=== PATIENT | male | born 1960 | race Caucasian/White ===

== ENCOUNTER 2019-07-23 09:43 | Day surgery (SDC) | payer OTHER, BC ==
[2019-07-23] MEDS ORDERED: Bupivacaine 0.5% 10 ML SDV INJECT ONE (10:05)
[2019-07-23] MEDS ORDERED: ceFAZolin 2 GM in Premix Bag 1 BAG IV ONE (10:30)
--- NOTE | 2019-07-23 10:43 | EDM.PDOC ---
<Nikita Whitfield Meliza - Last Filed: 07/23/19 11:44> ED HPI GENERAL MEDICAL PROBLEM - General Chief Complaint: Upper Extremity Injury/Pain Stated Complaint: RT MIDDLE FINGER INJURY Time Seen by Provider: 07/23/19 09:50 Source of Information: Reports: Patient, Other (Co-worker) History Limitations: Reports: No Limitations - History of Present Illness INITIAL COMMENTS - FREE TEXT/NARRATIVE: 58 y/o male pt presenting today after an injury at work. 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 He reports significant pain to this digit and states that he believes that his fingernail and a piece of the bone was taken with it. He denies any weakness of the proximal portion of his right middle finger and states he can feel sensation beyond just the pain. He denies injury to his other fingers. His co-worker/boss and him both reported the incident occurring around 9:20 a.m. this morning (07/22) and his co-worker brought him in immediately from his workplace ([employer] in [place], [place]). His co-worker reports that he then grabbed the amputated portion of his right middle finger still in the glove and put it in one bag and then into another bag of ice. Pt also reports he got his last tetanus vaccine somewhere between 6-10 years ago, but it probably needs to be updated. Right Finger-Middle Pain Score (Numeric/FACES): 2 - Related Data Allergies Allergy/AdvReac Type Severity Reaction Status Date / Time milk Allergy Cannot Verified 07/21/15 15:33 Remember Penicillins Allergy Hives Verified 07/23/19 09:54 potato Allergy Cannot Verified 07/21/15 15:33 Remember Sulfa (Sulfonamide Allergy Cannot Verified 07/21/15 15:33 Antibiotics) Remember tomato Allergy Cannot Verified 07/21/15 15:33 Remember wheat Allergy Cannot Verified 07/21/15 15:33 Remember Home Meds: Home Meds . [No Known Home Meds] 07/21/15 [History] Past Medical History HEENT History: Reports: Allergic Rhinitis, Impaired Vision Other HEENT History: wears glasses Cardiovascular History: Reports: None Respiratory History: Reports: Asthma Genitourinary History: Reports: None Musculoskeletal History: Reports: None Neurological History: Reports: None Psychiatric History: Reports: None Endocrine/Metabolic History: Reports: None Hematologic History: Reports: None Immunologic History: Reports: None Oncologic (Cancer) History: Reports: None Dermatologic History: Reports: None - Infectious Disease History Infectious Disease History: Reports: None - Past Surgical History GI Surgical History: Reports: Colonoscopy Social & Family History - Tobacco Use Smoking Status *Q: Never Smoker - Caffeine Use Caffeine Use: Reports: Coffee, Tea - Recreational Drug Use Recreational Drug Use: No Review of Systems - Review of Systems Review Of Systems: See Below Constitutional: Reports: No Symptoms Musculoskeletal: Reports: Hand Pain (Right 3rd digit pain from injury ) Skin: Reports: Wound (right 3rd digit amputated across the bone at the distal phalanx, including entire fingernail. ), Change in Hair/Nails (Nail was amputated as well during 3rd right digit injury ) Neurological: Reports: No Symptoms ED EXAM, GENERAL - Physical Exam Exam: See Below Exam Limited By: No Limitations General Appearance: Alert, No Apparent Distress Extremities: Other (Right 3rd digit finger pain from injury ) Neurological: Alert, Oriented, No Motor/Sensory Deficits (No sensory deficits to the portion of right middle finger that is still intact ) Psychiatric: Normal Affect, Normal Mood Skin Exam: Warm, Wound/Incision (amputation by work [place] of the right 3rd middle finger at the distal phalange ) ED TRAUMA EXTREMITY PROCEDURES - Laceration/Wound Repair Right Upper Distal Digit - 3rd (Middle) Appearance: Heavily Contaminated, Other (Amputation through the bone of the distal phalanx of the right 3rd finger ) Distal NVT: Neuro & Vascular Intact, No Tendon Injury Anesthetic Type: Digital Local Anesthesia - Bupivicaine (Marcaine): 0.5% Plain Local Anesthetic Volume: Other (8cc) Skin Prep: Saline Exploration/Debridement/Repair: Wound Explored, Explored to Base, No Foreign Material Found, Other (bone exposure evident ) Course - Vital Signs Last Recorded V/S: Last Vital Signs Temp 37.0 C 07/23/19 12:57 Pulse 71 07/23/19 12:57 Resp 16 07/23/19 12:57 BP 143/99 H 07/23/19 12:57 Pulse Ox 100 07/23/19 12:57 - Orders/Labs/Meds Meds: Medications Discontinued Medications Generic Name Dose Route Start Last Admin Trade Name Yury PRN Reason Stop Dose Admin Bupivacaine HCl 10 ml 07/23/19 10:05 07/23/19 10:10 Sensorcaine-Mpf 0.5% INJECT 07/23/19 10:06 10 ml ONETIME ONE Administration Bupivacaine HCl Confirm 07/23/19 11:47 07/23/19 12:29 Sensorcaine-Mpf 0.25% Administered 07/23/19 11:48 3.5 ml Dose Administration 30 ml .ROUTE .STK-MED ONE Diphtheria/Tetanus/Acell Pertussis 0.5 ml 07/23/19 10:47 07/23/19 10:57 Adacel IM 07/23/19 10:48 0.5 ml .ONCE ONE Administration Cefazolin Sodium/Dextrose 2 gm 50 mls @ 100 mls/hr 07/23/19 10:30 07/23/19 10 :51 / Premix IV 07/23/19 10:59 100 mls/hr ONETIME ONE Administration Lidocaine HCl Confirm 07/23/19 11:47 07/23/19 12:29 Xylocaine-Mpf 1% Administered 07/23/19 11:48 3.5 ml Dose Administration 30 ml .ROUTE .STK-MED ONE Departure - Departure Disposition: DC/Tfer to [facility] Clinical Impression: Traumatic amputation of fingertip Qualifiers: Encounter type: initial encounter Qualified Code(s): S68.119A - Complete traumatic metacarpophalangeal amputation of unspecified finger, initial encounter - Discharge Information Sepsis Event Note - Evaluation Sepsis Screening Result: No Definite Risk - Focused Exam Date Exam was Performed: 07/23/19 Time Exam was Performed: 11:44 <Adi Banerjee - Last Filed: 07/25/19 06:55> ED HPI GENERAL MEDICAL PROBLEM - History of Present Illness Onset: Today Onset Date: 07/23/19 Onset Time: 09:20 Duration: Minutes: Location: Reports: Upper Extremity, Right (Partial amputation distal aspect right third finger.) Quality: Reports: Ache, Throbbing Severity: Moderate Improves with: Reports: None Worsens with: Reports: Other, Movement Context: Reports: Trauma (Crush type injury. 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) (None.) Social & Family History - Living Situation & Occupation Living situation: Reports: Occupation: Employed Review of Systems - Review of Systems Eyes: Reports: Glasses Ears: Reports: No Symptoms Nose: Reports: No Symptoms Mouth/Throat: Reports: No Symptoms Respiratory: Reports: No Symptoms GI/Abdominal: Reports: No Symptoms Genitourinary: Reports: Other (Area x1.) ED EXAM, GENERAL - Physical Exam General Appearance: Other (Signs show temperature 36.8 with a pulse of 73 and sinus respiratory 16 BP is elevated at 182 /109.) Neck: Normal Inspection, Supple, Non-Tender, Full Range of Motion. No: Carotid Bruit, Lymphadenopathy (L), Lymphadenopathy (R) Respiratory/Chest: No Respiratory Distress, Lungs Clear, Normal Breath Sounds, No Accessory Muscle Use, Chest Non-Tender Cardiovascular: Normal Peripheral Pulses, Regular Rate, Rhythm, No Edema, No Gallop, No Murmur, No Rub Peripheral Pulses: 2+: Posterior Tibial (L), Posterior Tibial (R), Dorsalis Pedis (L), Dorsalis Pedis (R) GI/Abdominal: Normal Bowel Sounds, Soft, Non-Tender, No Organomegaly, No Abnormal Bruit, No Mass, Pelvis Stable EKG INTERPRETATION EKG Date: 07/23/19 Time: 11:41 Rhythm: NSR Rate (Beats/Min): 61 [place]: Normal P-Wave: Present QRS: Other (Your Q waves leads III and aVF consider old inferior wall myocardial infarction) ST-T: Normal QT: Normal EKG Interpretation Comments: Abnormal ECG Course - Radiology Interpretation Free Text/Narrative:: 58-year-old male presents to the ED with a crush type injury to the distal aspect of his right third finger. 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 States that his gloved finger became entrapped in the pressor component and resulted in a partial amputation of the distal aspect of his right third finger. Of note the patient is right-hand dominant. On inspection he has lost all of his fingernail and part of the pulp space of the distal right third finger. Plan digital block with Marcaine 0.5%. X-rays to be done. He is tetanus diphtheria pertussis will be updated. He will receive Ancef 2 g IV. - Re-Assessments/Exams Free Text/Narrative Re-Assessment/Exam: 07/23/19 11:[address] 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 The decision will likely be to take him to the OR around noon today since the bone is exposed. Patient has good relief of the pain with the bupivacaine or Marcaine digital block. X-ray confirms loss of the fingernail and approximately 1 order of the distal phalanx. He will need revision of amputation.I agree with GALEN` students documentation and treatment plan. David Whitfield. 07/22 12:10: Dr Chen has seen the patient and arrangements have been made to take him to surgery shortly for revision of partial amputation due to exposed bone. Departure - Departure Time of Disposition: 12:04 Condition: Fair - Discharge Information *PRESCRIPTION DRUG MONITORING PROGRAM REVIEWED*: Not Applicable *COPY OF PRESCRIPTION DRUG MONITORING REPORT IN PATIENT JAY JAY: Not Applicable Sepsis Event Note - Focused Exam Date Exam was Performed: 07/25/19 Time Exam was Performed: 06:54
[2019-07-23] MEDS ORDERED: Diphtheria,Pertussis(Acell),Tetanus Vaccine 0.5 ML Syringe IM ONE (10:47)
--- NOTE | 2019-07-23 10:55 | CR ---
Right third finger: Four views centered to the right third finger were obtained. Comparison: No prior third finger study. Distal soft tissue amputation and bony amputation is seen within the third finger. No proximal fracture or other abnormality is appreciated. Impression: 1. Distal right third finger amputation. 2. No proximal abnormality is seen. Diagnostic code #3 This report was dictated in [place] Standard Time
[2019-07-23] MEDS ORDERED: Bupivacaine 0.25% 10 ML SDV ONE (11:47)
[2019-07-23] MEDS ORDERED: Lidocaine 1% 30 ML SDV ONE (11:47)
[2019-07-23 13:08] VITALS: BP 143/99; PULSE 71
--- NOTE | 2019-07-25 08:18 | CONS ---
CONSULTING PHYSICIAN: Sundeep Chen MD DATE OF CONSULTATION: 07/23/2019 HISTORY OF PRESENT ILLNESS: This is a 58-year-old right-hand dominant male, who was injured while at work when he was using a metal press machine and got his right middle finger caught in it, it subsequently took part of his finger tip off. He was taken to the emergency department up here. He did state his 4th finger felt a little bruised, but otherwise was intact. He last got his tetanus vaccine about 6 to 10 years ago, but did get it updated. He was given Ancef in the emergency department, and we were consulted for possible revision amputation. He denies any previous pain or injury to the right upper extremity before this happened. OBJECTIVE: VITAL SIGNS: Afebrile. Vital signs stable. GENERAL: The patient is alert. He is in no acute distress. EXTREMITIES: On examination, the patient did have his finger numbed up before I was able to see him, but he was able to otherwise move the PIP, MCP joint and make otherwise full fist. He is noted to have a complete oblique amputation through the distal phalanx just distal to the beginning of the nail bed. It has good bleeding tissue. There is no gross debris noted. He is otherwise neurovascularly intact to radial, ulnar, and median nerve distributions with 2+ distal radial pulse. RADIOGRAPHS: Show amputation through the distal phalanx of the right middle finger. ASSESSMENT: Amputation, right middle finger. PLAN: The patient had a complete amputation of the distal phalanx of the right middle finger. At this point, it does need a revision amputation as there is exposed bone. We will plan on doing a revision amputation of the right middle finger and primary closure. The risks, benefits, complications, and alternatives were discussed with the patient on today's visit. I did discuss we will try to save the DIP, but we will remove the whole nail as it is only a small amount remaining and could lead to a deformed nail. He is in agreement with this plan, and we will take the patient back at once. MMODAL /[id number]
--- NOTE | 2019-07-29 12:06 | PCM.OPNOTE ---
- General Post-Op/Procedure Note Date of Surgery/Procedure: 07/23/19 Operative Procedure(s): revision amputation with amputation through distal phalanx or right middle finger Pre Op Diagnosis: partial amputation of right middle distal phalanx Post-Op Diagnosis: Same Anesthesia Technique: Local Primary Surgeon: uSndeep SABA in mLs: 10 Complications: None Condition: Good
--- NOTE | 2019-07-29 12:23 | OR ---
DATE OF OPERATION: 07/23/2019 SURGEON: Sundeep Chen MD OPERATION PERFORMED: Revision amputation with amputation through distal phalanx of right middle finger. PREOPERATIVE DIAGNOSIS: Partial amputation of right middle distal phalanx. POSTOPERATIVE DIAGNOSIS: Partial amputation of right middle distal phalanx. ANESTHESIA: Local only. ANESTHESIA PROVIDER: None. CELLOPHANE WORKER: None. ESTIMATED BLOOD LOSS: 10 mL. COMPLICATIONS: None. CONDITION: Stable. DESCRIPTION OF PROCEDURE: The patient was identified in the preoperative holding area. Proper site was marked and identified by surgeon. The patient was taken back to the operating theater where after adequate anesthesia, the patient's right upper extremity sterilely prepped and draped in the usual sterile fashion. OR time-out was performed. The patient received 2 g of IV Ancef. The patient was noted to have an amputation completely through the nail bed and through the tip of the distal phalanx with significant exposed bone. Secondary to this, there was need for revision of the amputation. I did circumferential removal of the soft tissue as well as the remaining nail bed around the distal phalanx and then used a rongeur to amputate part of the distal phalanx off back to a point where this soft tissue could close over the top of the distal phalanx bone. I was able to save the DIP joint and did not have to take it all the way back to the DIP joint as I had enough skin for closure and soft tissue for closure at that point. After resecting the nail bed entirely and getting enough resection of bony tissue, I did clean up resecting roughly 1 cm2 of soft tissue that was nonviable as well as skin that was nonviable at this time as well. Once it had good closure with no fishmouth noted on either end, a liter of saline was irrigated through the wound and then 4-0 nylon simple sutures were used for closure over the top of the exposed bone. It had good soft tissue coverage of the tip of the distal phalanx bone with otherwise no signs of prominence. A sterile soft dressing was applied. The patient was sent to PACU in stable condition and was placed on 5 days of Keflex at this time. MMODAL /[id number]
== END 2019-07-23 13:50 | disposition home or self-care (01) ==
LOC: JD.ED 09:43 → JD.SDS 11:33
PROVIDERS: ATTEND Orthopaedic Surgery
DX: S68.622A Partial traumatic transphalangeal amputation of right middle finger, initial encounter (principal); Z23 Encounter for immunization; Z88.0 Allergy status to penicillin; Z91.011 Allergy to milk products; Z91.018 Allergy to other foods; Z88.2 Allergy status to sulfonamides; W31.89XA Contact with other specified machinery, initial encounter; Y99.0 Civilian activity done for income or pay
CPT/HCPCS: 20552; 26236; 73140; 90471; 90715; 93005; 96365; 99284; J0690; J2001; J3490; 93010